=== PATIENT | female | born 1985 | race Caucasian/White ===

== ENCOUNTER 2017-12-20 19:18 | Emergency (ER) | payer OTHER ==
--- NOTE | 2017-12-20 19:34 | PDOC ---
Rapid Medical Evaluation Time Seen by Provider: 12/20/17 19:33 Medical Evaluation: I have performed a brief in-person evaluation of this patient. The patient presents with a chief complaint of: pedicure 9 days ago. cellulitis of right big toe Pertinent physical exam findings: erythematous swollen right toe I have ordered the following: hcg The patient will proceed to the ED for further evaluation.
[2017-12-20 19:40] VITALS: BP 123/72; PULSE 84; TEMP 98.6; BMI 20.9
--- NOTE | 2017-12-20 20:13 | PDOC ---
History of Present Illness - General Chief Complaint: Wound Stated Complaint: INFECTION Time Seen by Provider: 12/20/17 19:33 History Source: Patient Exam Limitations: No Limitations - History of Present Illness Initial Comments: 12/20/17 20:59 Patient is a 32-year-old female no past medical history presenting emergency department today complaining of left first toe pain. Patient states she was getting a pedicure 2 days ago and there are calling at her cuticles. She states since then the pain is increased and she thinks she has infection of her nailbed. She was able to squeeze some pus out and states that the area is painful. Denies fevers, chills, weakness, numbness with toe, nausea or vomiting. Past History - Travel Traveled outside of the country in the last 30 days: No Close contact w/someone who was outside of country & ill: No - Past Medical History Allergies/Adverse Reactions: Allergies Allergy/AdvReac Type Severity Reaction Status Date / Time No Known Allergies Allergy Verified 12/20/17 19:40 Home Medications: Ambulatory Orders Amoxicillin - [Amoxicillin 500mg Capsule -] 500 mg PO TID 12/20/17 Cephalexin Monohydrate [Keflex -] 500 mg PO BID #14 capsule 12/20/17 Ibuprofen 800 mg PO TID #30 tablet 12/20/17 Naproxen [Naprosyn] 500 mg PO BID 12/20/17 Sulfamethoxazole/Trimethoprim [Bactrim Ds -] 1 tab PO BID #14 tablet 12/20/17 COPD: No - Suicide/Smoking/Psychosocial Hx Smoking History: Current every day smoker Have you smoked in the past 12 months: No Information on smoking cessation initiated: No Review of Systems - Review of Systems Able to Perform ROS?: Yes Comments:: 12/20/17 20:58 CONSTITUTIONAL: Absent: fever, chills, diaphoresis, generalized weakness, malaise, loss of appetite MUSCULOSKELETAL: Absent: myalgia, arthralgia, joint swelling SKIN: Present: Redness and swelling with clear drainage to the L 1st toe. Absent: rash , itching, pallor NEUROLOGIC: Absent: headache, focal weakness or paresthesias, dizziness, unsteady gait, seizure, mental status changes, bladder or bowel incontinence PSYCHIATRIC: Absent: anxiety, depression, suicidal or homicidal ideation, hallucinations. Is the patient limited Pashto proficient: No *Physical Exam - Vital Signs Last Vital Signs Temp Pulse Resp BP Pulse Ox 98.6 F 84 16 123/72 100 12/20/17 19:36 12/20/17 19:36 12/20/17 19:36 12/20/17 19:36 12/20/17 19:36 - Physical Exam Comments: 12/20/17 22:58 GENERAL: Well developed, well nourished. Awake and alert. No acute distress. MUSCULOSKELETAL Normal range of motion at all joints. No bony deformities or tenderness. No CVA tenderness. EXTREMITIES: No cyanosis. No clubbing. No edema. No calf tenderness. SKIN: Paronychia to the lateral left first toe. There is open and draining. Was able to express more pus after soaking. There is an area of cellulitis just posterior to the nailbed measuring approximately 1 cm.Warm and dry. Normal capillary refill. No rashes. No jaundice. NEUROLOGICAL: Alert, awake, appropriate. Cranial nerves 2-12 intact. No deficits to light touch and temperature in face, upper extremities and lower extremities. No motor deficits in the in face, upper extremities and lower extremities. Normoreflexic in the upper and lower extremities. Normal speech. Toes are down- going bilaterally. Gait is normal without ataxia. PSYCHIATRIC: Cooperative. Good eye contact. Appropriate mood and affect. Medical Decision Making - Medical Decision Making 12/20/17 21:00 Patient is 32-year-old female no past medical history is emergency department who presents with a paronychia to her left first toe after getting a pedicure. The area is open and draining. The foot was further soaked in the emergency department and more pus was expelled. There is an area of cellulitis posterior to the nailbed. We'll treat with Bactrim and Keflex at this time for cellulitis. First dose given in the ED. Return precautions given. Patient understands all discharge instructions and all questions were answered. *DC/Admit/Observation/Transfer Diagnosis at time of Disposition: Paronychia Cellulitis Qualifiers: Site of cellulitis: other site Qualified Code(s): L03.818 - Cellulitis of other sites - Discharge Dispostion Disposition: HOME Condition at time of disposition: Stable Admit: No - Prescriptions Prescriptions: Cephalexin Monohydrate [Keflex -] 500 mg PO BID #14 capsule Ibuprofen 800 mg PO TID #30 tablet Sulfamethoxazole/Trimethoprim [Bactrim Ds -] 1 tab PO BID #14 tablet - Referrals Referrals: Antonio Dutta MD [Staff Physician] - - Patient Instructions Printed Discharge Instructions: DI for Paronychia Additional Instructions: You have a paronychia or a infection of the nailbed with surrounding cellulitis. Please take the Bactrim and Keflex twice a day for one week. Please take all the antibiotics even if you feel better. You may use warm water soaks to the area. Please do this approximately 4-5 times a day. Please avoid new pedicures while the site is healing. You may take Tylenol or Motrin as needed for pain. Keep the toe covered with a bandaid when wearing sandals. Please follow up with your primary care doctor in 1 week. Return to the emergency department if you have worsening redness, fevers, increasing pain, or have any changes in your symptoms. - Post Discharge Activity Forms/Work/School Notes: Back to Work
[2017-12-20] MEDS ORDERED: IBUPROFEN 400 MG TABLET (FP) PO ONE ×2 (20:23→20:27)
[2017-12-20] MEDS ORDERED: SULFAMETHOXAZOLE/TRIMETHOPRIM 800MG/160MG D.S. TABLET PO ONE (20:23)
[2017-12-20] MEDS ORDERED: CEPHALEXIN MONOHYDRATE 500 MG CAPSULE (UD) PO ONE (20:23)
[2017-12-20] MEDS ORDERED: SULFAMETHOXAZOLE/TRIMETHOPRIM 800MG/160MG D.S. TABLET ONE (20:26)
[2017-12-20] MEDS ORDERED: CEPHALEXIN MONOHYDRATE 500 MG CAPSULE (UD) ONE (20:27)
== END 2017-12-20 21:28 | disposition home or self-care (01) ==
LOC: JERFT 19:18
DX: L03.032 Cellulitis of left toe (principal)
CPT/HCPCS: 99281-25